=== PATIENT | male | born 1940 | race Caucasian/White ===

== ENCOUNTER 2017-08-29 14:02 | Inpatient (IN) | payer MEDICARE, MEDICAID ==
[~2017-08-29] VITALS: Ht 162.5 cm; Wt 74.2 kg
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
--- NOTE | ~2017-08-29 | PR ---
[place], [place] PROGRESS NOTE [id number] #: [id number] ROOM: 311 DOCTOR: Georgia BUENO,JOSELITO BIRTHDATE: [birth year] DOS: 09/02/2017 PSYCHIATRIC PROGRESS NOTE SUBJECTIVE: The patient seen and spoke with the staff. Per staff, the patient was pleasant and cooperative. His ammonia level was 98. We checked today ____. Hospitalist was on board and they were consulted. The plan is to give him lactulose and follow the ammonia level again. Per nursing staff, there are no behavioral problems or issues. The patient was pleasant and cooperative. He described his mood as okay. He was hard of hearing though. He reported good sleep and appetite and does not seem to be of in any kind of distress. Denied any other side effect from the medication also. MENTAL STATUS EXAMINATION: A pleasant and cooperative, described his mood as "okay." Affect, mood congruent. Thought process goal direct. No flight of ideas, loosening of association. He denied auditory or visual hallucination. No delusion or paranoia noted. He denied suicidal ideation, intent or plan. He also denied homicidal ideation, intent or plan. ASSESSMENT: 1. Major depressive disorder, recurrent with psychotic feature 2. Posttraumatic stress disorder. PLAN: 1. Continue current medication and care. 2. Continue redirection. 3. Need to pay attention to the ammonia level. 4. Medication management and discharge plan by the regular team. JOSELITO BUENO MD CM:ANAHI [id number] Georgia BUENO 09/02/17 1537 interface
--- NOTE | ~2017-08-29 | PR ---
[place], [place] PROGRESS NOTE NAME: NICANOR FISHMAN UNIT #: [id number] ROOM: 311 DOCTOR: PRICILLA ALBA MD BIRTHDATE: [birth year] DOS: 09/03/2017 CHIEF COMPLAINT: "Morning." SUMMARY OF THE VISIT: The patient was interviewed as he sat eating his breakfast. He still remains hard of hearing, so communication is limited. He was pleasant and bright upon approach though and voiced no complaints. Of note, over the weekend, his serum ammonia level was elevated. It is unclear whether or not this is a true elevated or if perhaps lab is not icing the specimen properly. MENTAL STATUS: He is alert and oriented to self and place, not necessarily time. Mood seems fairly euthymic. Affect appropriate. There is no patrick or hypomania. There are no sexually inappropriate behavior, delusional quality of his symptoms noted. Short term memory remains poor. PLAN: I will discontinue the Depakote in case this is causing any possible elevation in his ammonia level. I will keep him on the Invega 3 mg a day to break through the delusional system. I will increase his Exelon patch from 4.6 to 9.5 mg a day as well as maximizing the Namenda dose to 10 mg b.i.d. in order to help maintain or improve ADLs, behavior and cognition. We will engage in individual and hartley milieu activity with the ultimate plan to return to the least restrictive environment when psychiatrically stable. PRICILLA ALBA MD CM:PNTRANS [id number] PRICILLA ALBA MD 09/03/17 1044 interface
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
--- NOTE | ~2017-08-29 | PR ---
[place], [place] PROGRESS NOTE NAME: [id number] #: [id number] ROOM: 311 DOCTOR: Georgia BUENO,JOSELITO BIRTHDATE: [birth year] DOS: 09/01/2017 PSYCHIATRIC PROGRESS NOTE SUBJECTIVE: The patient seen and spoke with the staff. Per staff, the patient is doing well. No behavioral problems or issues. His ammonia level was 58, but no outward physical issues. The hospitalist was consulted. The patient was in the dining area. He reports doing well, did not express any problems or concern. He said that he slept well last night and his appetite is pretty good also. He denied any side effect from the medication. MENTAL STATUS EXAMINATION: The patient was pleasant, cooperative, described his mood as "okay." Affect, mood congruent. Thought process goal directed. No flight of ideas or loosening of association. He denied auditory or visual hallucination. No delusion or paranoia noted. He denied any suicidal ideation, intent or plan. He also denied any homicidal ideation, intent or plan. Insight and judgment fair. ASSESSMENT: 1. Major depressive disorder, recurrent with psychotic feature. 2. Posttraumatic stress disorder. PLAN: 1. Continue current medication and care. 2. Continue redirection. 3. Consult hospitalist for high ammonia level. 4. Supportive care and hartley milieu. JOSELITO BUENO MD CM:ANAHI [phone] Georgia BUENO 09/01/17 1650 interface
--- NOTE | 2017-08-29 06:15 | NUR ---
PT HAS SLEPT QUIETLY THROUGHOUT THE SHIFT PAST 0030.
[2017-08-29 20:30] VITALS: BP 137/63
[2017-08-29] MEDS ORDERED: CELEXA10 MG PO (21:14)
[2017-08-29] MEDS ORDERED: DONEPEZIL HCL10 MG PO (21:15)
[2017-08-29] MEDS ORDERED: NAMENDA-5 PO (21:16)
[2017-08-29] MEDS ORDERED: VITAMIN D31000 UNI1 PO (21:18)
[2017-08-29] MEDS ORDERED: LASIX40 MG PO (21:39)
[2017-08-29] MEDS ORDERED: FENOFIBRATE145 M1 PO (21:39)
[2017-08-29] MEDS ORDERED: PILOCARPINE HCL15 M2 OU (21:41)
[2017-08-29] MEDS ORDERED: ALDACTONE25 M1 PO (21:42)
[2017-08-29] MEDS ORDERED: TRAVATAN 0.0042.5 M1 OU (21:44)
[2017-08-29] MEDS ORDERED: ALPHAGAN P 10 M10 M1 OU (21:46)
[2017-08-29] MEDS ORDERED: LIPITOR10 MG PO (21:47)
[2017-08-29] MEDS ORDERED: ASPIRIN ADULT L81 M2 PO (21:49)
[2017-08-29] MEDS ORDERED: ACETAMINOPHEN325 M3 PO (21:53)
[2017-08-29] MEDS ORDERED: ACETAZOLAMIDE250 MG PO (21:54)
[2017-08-29] MEDS ORDERED: ARTIFICIAL TEAR1513 OU (21:59)
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
--- NOTE | 2017-08-29 22:00 | NUR ---
NICANOR FISHMAN a 77 year old M admitted A DIRECT ADMISSION FROM [facility] via wheel chair as a voluntary admission PER LEGAL GUARDIAN JORDY NARANJO. PT ARRIVED TO ED REGISTRATION VIA 1 STAFF TRANSPORT FROM THE ASSISTED. VERBAL CONSENT FOR VOLUNTARY ADMISSION WAS OBTAINED EARLIER BY LUKE CARREON RN & LILLIAN KAT RN. Arrived on unit at 2024. ALLERGIES: NKA. Vital signs are: 97.4-89-18 137/63. NO OTHER ADMISSION FORMS SIGNED AT THIS TIME. AWAITING RETURN PHONE CALL FROM LEGAL GUARDIAN. Admitted under the services of [facility]. A search was conducted and hazardous articles were removed. Client was oriented to the unit. TAE SIERRA
--- NOTE | 2017-08-29 22:13 | NUR ---
DR VALENTIN NOTIFIED OF MEDICAL CONSULT. STATED TO PUT CONSULT UNDER DR HOLLINS.
--- NOTE | 2017-08-29 22:47 | NUR ---
DR BROOKE ON UNIT TO SEE PT FOR MEDICAL CONSULT.
[2017-08-29 23:09] VITALS: BP 137/63
--- NOTE | 2017-08-29 23:41 | NUR ---
VOICE MESSAGE LEFT FOR JORDY NARANJO LEGAL GUARDIAN TO RETURN PHONE CALL TO UNIT FOR CONSENTS FOR MEDICATIONS & OTHER ADMISSION PAPERS.
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
[2017-08-30 07:30] LABS: BASO % 0.5 % (0.0-1.0); EOS # 0.2 10*3/uL (0.0-0.4); EOS % 3.1 % (1.0-4.0); HEMATOCRIT 40.2 % (42.0-52.0); LYMPH # 1.6 10*3/uL (1.3-4.4); MEAN CELL VOLUME 93.9 fl (80.0-94.0); MEAN CORPUSCULAR HGB 30.4 pg (27.0-31.0); MEAN CORPUSCULAR HGB CONC 32.3 g/dl (33.0-37.0); MEAN PLATELET VOLUME 9.1 fl (9.6-12.3); MONO # 0.7 10*3/uL (0.1-1.0); MONO % 12.9 % (3.0-9.0); NEUT # 3.2 10*3/uL (2.3-7.9); NEUT % 55.2 % (47.0-73.0); PLATELET COUNT AUTOMATED 269 10*3/uL (130-400); RED BLOOD COUNT 4.28 10*6/uL (4.50-5.90); WHITE BLOOD COUNT 5.7 10*3/uL (4.8-10.8)
[2017-08-30 07:46] LABS: ALBUMIN 3.3 gm/dl (3.1-4.5); ALKALINE PHOSPHATASE 57 U/L (45-117); BUN 16 mg/dl (7-24); CHLORIDE 106 mmol/L (98-107); CHOLESTEROL 132 mg/dL (<200); CREATININE 1.28 mg/dL (0.70-1.30); POTASSIUM 3.8 mmol/L (3.5-5.1); SGOT/AST 12 IU/L (3-35); SGPT/ALT 12 U/L (12-78); SODIUM 136 mmol/L (136-145); TOTAL PROTEIN 7.1 gm/dL (6.4-8.2); TRIGLYCERIDES 57 mg/dl (<150); VLDL CHOLESTEROL 11 mg/dL (6-40)
[2017-08-30 07:55] LABS: HDL CHOLESTEROL 59 mg/dl (40-60); LDL CHOLESTEROL 62 mg/dL (9-159); THYROID STIM HORMONE (HS) 0.771 uIU/ml (0.358-4.75)
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
[2017-08-30 08:17] VITALS: BP 121/65
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
[2017-08-30 08:39] LABS: VITAMIN D, 25-HYDROXY 25.1 ng/mL (30-100)
--- NOTE | 2017-08-30 11:10 | NUR ---
URINALYSIS OBTAINED AT THIS TIME VIA CLEAN CATCH AND SENT TO LAB.
[2017-08-30 11:21] LABS: BILIRUBIN NEGATIVE (NEGATIVE); BLOOD NEGATIVE (NEGATIVE); CLARITY CLEAR (CLEAR); COLOR YELLOW (YELLOW); GLUCOSE NEGATIVE (NEGATIVE); KETONE NEGATIVE (NEGATIVE); LEUKO ESTERASE NEGATIVE (NEGATIVE); NITRITE NEGATIVE (NEGATIVE); SPECIFIC GRAVITY <= 1.005 (1.005-1.030); UROBILINOGEN 0.2 E.U./dl (0.2-1.0)
--- NOTE | 2017-08-30 11:34 | NUR ---
PT IS ALERT AND ORIENTED TO PERSON, UNABLE TO ACCURATELY ASSESS FURTHER ORIENTATION OR MEMORY DUE TO PT BEING EXTREMELY HARD OF HEARING. UPON ASSESSMENT, PT'S EAR CANAL APPEARS FULL OF WAX AND HEARING AIDES FILLED WITH WAX, CLEANED ABLE, WILL ALERT HOSPITALISTS DURING ROUNDS. MOOD IS STABLE, EUTHYMIC, AFFECT IS BROAD RANGE AND APPROPRIATE. SPEECH IS WNL AND COHERENT, ABLE TO VERBALIZE NEEDS TO STAFF WITHOUT DIFFICULTY. NO VOCIED SI/HI. NO OVERT S/S HALLUCINATIONS NOTED. PT DOES CONTINUE TO VOICE PARANOID, ACCUSATORY AND GRANDIOSE DELUSIONS, SPEAKING ABOUT GETTING TO THE NURSE AT HIS [facility] AND STATES "THAT SON OF A B-TCGarret, I HAD 4 CHECKS COMING TO ME OVER $100,OOO, HE TOOK TWO AND HIS TOOK ONE AND HIS GIRLFRIEND TOOK ONE, I DIDN'T GET ANY OF THAT MONEY I SHOULD HAVE HAD!". REORIENTATION PROVIDED. PT UTILIZES WHEELCHAIR ON THE UNIT FOR MOBILITY, PROSTHETIC LEG IN PLACE TO LEFT LEG. PT ABLE TO APPLY PROTHESIS INDEPENDENTLY. PT ABLE TO TRANSFER WITH MINIMAL ASSIST OF 1 STAFF MEMBER. CONTINENT OF BOWEL AND BLADDER. DISPLAYS GOOD APPETITE WITH ADEQUATE FLUID INTAKE, NO DISTRESS NOTED. Q15 MIN SAFETY CHECKS MAINTAINED, FALL RISK PRECAUTIONS MAINTAINED. REFER TO [facility] FLOWSHEET FOR SPECIFIC MONITORING.
[2017-08-30 11:39] LABS: WBC 0-2 wbc/hpf (0-5)
--- NOTE | 2017-08-30 11:42 | NUR ---
Morning exercises/ "strawberry" cornhole and remenissing group Patient attended and particpated in half of group today. Patient limited in partipation due to increased [place]. Patient able to follow visual cues for exercises and participation in cornhole with appropriate behaviours with peers and staff. Patient reports enjoying activities.
--- NOTE | 2017-08-30 11:57 | NUR ---
PHYSICAL THERAPY PAtient evaluated on 3, full evaluation to follow. Continue with PT as per plan of care with fall, right AKA and acute debility precautions. PAtient with poor hearing and vision. Return to jail at terminal supervisor care as prior with PT prn to return to PLOF. PAtient is high complexity via chart review, tests and evaluation: 33303. Thank you for this referral. Vianca Garrett,PT
--- NOTE | 2017-08-30 12:05 | NUR ---
Occupational Therapy evaluation completed this date on 3 with full eval to follow. PRecautions include fall risk, new RLE prosthesis d/t r AKA,moderate complexity level 27655, severe SIOUX, impaired vision d/t glaucoma. Recommend OT per pOC and return to [facility] at w/c upon d/c. Thank you for this referral. Birdie Sandoval OTR/l
--- NOTE | 2017-08-30 14:03 | NUR ---
DR. MARRERO HERE TO SEE PT AT THIS TIME, UPDATE GIVEN, DR. WILKERSON REVIEWING LABS, STATES OK FOR NURSING TO FLUSH EARS DUE TO WAX BUILD-UP.
--- NOTE | 2017-08-30 14:55 | NUR ---
CALL PLACED TO ED TO REQUEST EAR IRRIGATION PER DR MARRERO, NO ONE AVAILABLE AT THIS TIME, WILL ATTEMPT LATER.
--- NOTE | 2017-08-30 15:00 | NUR ---
Inspirational craft group Patient attended and participated appropriately however with limitations. Patient with TAZLINA and unable to read. Patient stated " I didnt finish school because I couldnt read." Nursing aware and addressing issues with TAZLINA. Patient pleasant and smiling throughout group.
--- NOTE | 2017-08-30 18:26 | NUR ---
SHIFT CHART CHECK COMPLETED.
[2017-08-30 19:40] VITALS: BP 125/72
--- NOTE | 2017-08-30 21:22 | NUR ---
BILATERAL EARS IRRIGATED PER ORDER USING EAR SYRINGE AND TEPID WATER PER POLICY. COPIOUS AMOUNTS OF WHITE AND YELLOW CERUMEN EXPRESSED. PT TOLERATED PROCEDURE WELL.
--- NOTE | 2017-08-31 04:38 | NUR ---
24 HOUR CHART CHECK COMPLETED.
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
--- NOTE | 2017-08-31 08:33 | NUR ---
DR. ALBA MADE AWARE OF ABNORMAL AMMONIA LEVEL OF 38, STATES TO REPEAT AMMONIA LEVEL TOMORROW MORNING.
[2017-08-31 09:45] VITALS: BP 115/63
--- NOTE | 2017-08-31 11:56 | NUR ---
Patient seen for Occupational Therapy evaluation this date for UE strengthening via w/c push ups, functional transfers w/ ww.Patient's hearing aides are not working d/ severe wax build up in tubing of hearing aides. They will need to be cleaned by a specialist. He has a great deal of difficulty following instructions that cannot be demonstrated. He demonstrates min assist for sit to stand, mod assist for xfers bed to and from w/c and stand tolerance w/ ww x 2-3 minutes. He performs w/c mobility at TX level. After OT tx, patient verbalized an invite that OT could come back to visit day or NIGHT. He then verbalized that he has not "had any" in 3 yrs and he "keeps asking, but they always refuse". Nursing informed of these comments. Pt was however pleasant and laughed saying "I understand" when OT said "No, you'll live"in response to his offer. OT continue per POC. Birdie Sandoval OTR/L
--- NOTE | 2017-08-31 12:33 | NUR ---
OCCUPATIONAL THERAPIST REPORTED PT MADE VERBAL SEXUALLY INAPPROPRIATE ADVANCES TO HER DURING THERAPY, STATES HE WAS EASILY REDIRECTED AND PLEASANT, DID NOT ATTEMPT TO TOUCH THERAPIST, SEE OT NOTE FOR FURTHER DETAIL.
--- NOTE | 2017-08-31 13:16 | NUR ---
Exercise/Game Patient did not attend group this morning. Patient was asleep in his room. When AC attempted to wake up patient, patient could not be awaken.
--- NOTE | 2017-08-31 14:28 | NUR ---
PT IS ALERT AND ORIENTED TO PERSON, PLACE, APPROX TIME. ST/LT MEMORY DEFICITS NOTED. RESPIRATIONS EASY ON ROOM AIR. PT VERY ENTERPRISE DESPITE EAR IRRIGATION AND HEARING AIDE BATTERIES BEING REPLACED. DEBROX GTTS ORDERED BY DR. ALBA. GIVEN ORDERED. MOOD IS STABLE, AFFECT IS APPROPRIATE. SPEECH IS LOUD BUT COHERENT, ABLE TO MAKE NEEDS KNOWN WITHOUT DIFFICULTY. PT DENIES SI/HI. PT DENIES HALLUCINATIONS, NO RESPONSE TO INTERNAL STIMULI NOTED. PT HAS NOT VOICED ANY PARANOID DELUSIONS THIS SHIFT. PT IS CALM AND COOPERATIVE, INTERACTIVE WITH STAFF AND PEERS, PARTICIPATES IN GROUPS AND ACTIVITIES TO THE BEST OF HIS ABILITY D/T HEARING DIFFICULTIES. STAFF HAS ATTEMPTED TO COMMUNICATE WITH PT VIA WRITTEN WORDS, PT STATES "I CAN'T READ. I TRIED A FEW TIMES BACK IN SCHOOL, BUT I NEVER GOT THE HANG OF IT." PICTURE COMMUNICATION BOARD ON UNIT AVAILABLE FOR STAFF UTILIZATION TO FACILITATE COMMUNICATION. PT UTILIZES WHEELCHAIR FOR MOBILITY, ABLE TO TRANSFER SELF WITH STANDBY ASSIST FROM STAFF FOR SAFETY. FALL RISK PRECAUTIONS MAINTAINED D/T PROSTHETIC RIGHT LEG. PT IS CONTINENT OF BOWEL AND BLADDER, DISPLAYS GOOD APPETITE WITH ADEQUATE FLUID INTAKE. MEDICATION COMPLIANT WITHOUT DIFFICULTY. PT'S TREATMENT PLAN TARGETS DELUSIONAL THOUGHT PROCESSES: STAFF WILL CONTINUE TO ENGAGE PT IN REALITY BASED INTERACTIONS, ASSIST PT WITH DIFFERENTIATING BETWEEN DELUSIONS AND REALITY BASED THOUGHTS, ENCOURAGE PT TO PARTICIPATE IN GROUPS AND ACTIVITIES AND ENCOURAGE MEDICATION COMPLIANCE. PLAN TO CONTINUE CURRENT TX PLAN. NO DISTRESS NOTED. Q15 MIN SAFETY CHECKS MAINTAINED, REFER TO [facility] FLOWSHEET FOR SPECIFIC MONITORING.
--- NOTE | 2017-08-31 15:25 | NUR ---
Witch Fishing/Reminiscing Patient was in attendence. Due to patients inability to hear or read it was difficult for patient to reminisce. Patient did participate in the Witch Fishing portion of group but did not understand reminiscing.
--- NOTE | 2017-08-31 16:21 | NUR ---
TRETAMENT TEAM WAS HELD WITH THE FOLLOWING: DR. ALBA, RESIDENT, RNs, ATs, SW. PENDING DISCHARGE FOR NEXT WEEK. LOTS OF EAR WAX. HEARING AIDS ARE CKED WITH WAX AND ARE NOT WORKING.
--- NOTE | 2017-08-31 18:13 | NUR ---
SHIFT CHART CHECK COMPLETED.
[2017-08-31 19:45] VITALS: BP 104/60
--- NOTE | 2017-09-01 03:00 | NUR ---
PT ORIENTED TO NAME ONLY. PLEASANT AND MEDICATION COMPLIANT. PT HAS EXHIBITED NO SEXUALLY INAPPROPRIATE BEHAVIOR AT THIS TIME OF DOCUMENTATION. NURSE ENCOURAGED PT TO VERBALIZE EMOTIONS IN HOPES TO FOSTER THERAPEUTIC RAPPORT. PT REPORTED NO ISSUES TO THIS NURSE. REASSURED PT THAT HE WAS IN A SAFE ENVIRONMENT AND PROVIDED REORIENTATION, WHEN NECESSARY. CONTINUE TO MONITOR FOR CHANGES IN BEHAVIOR. REFER TO FLOWSHEET FOR ADDITIONAL INFO.
--- NOTE | 2017-09-01 03:08 | NUR ---
24HR CHART CHECK COMPLETE
--- NOTE | 2017-09-01 07:05 | NUR ---
PT SLEPT >8HRS, WITH NO INTERRUPTIONS
[2017-09-01 08:00] VITALS: BP 128/68
--- NOTE | 2017-09-01 08:00 | NUR ---
LAB CALLED WITH CRITICAL LAB- AMMONIA AT 58; DR. BUENO AND DR. CLARK NOTIFIED OF LAB LEVEL.
--- NOTE | 2017-09-01 11:08 | NUR ---
DR. CONNORS ON UNIT TO SEE PATIENT.
--- NOTE | 2017-09-01 17:22 | NUR ---
PATIENT IS ALERT AND ORIENTED TO PERSON AND TIME, ABLE TO VOICE NEEDS. MEMORY DEFICITS NOTED. MOOD IS STABLE, COMPLIANT WITH MEDICATION WITH MED EDUCATIONS PRIOR TO ADMINSTRIING MEDICATION. PATIENT DENIES ANY HALLUCINAITONS, DELUSIONS, HI/SI OR PAIN. PATIENT IS HARD OF HEARING. PATIENT REQUIRES 1 PERSON ASSIST WITH ACTIVITIES OF DAILY LIVING. MEAL INTAKES ARE GOOD WITH ADEQUATE FLUIDS. Q 15 MINUTE SAFETY CHECKS MAINATINED. NO SEXUALLY INAPPROPRIATE OUTBURST OR BEHAVIORS NOTED. CONTINUE TO MONITOR AND REDIRECT NEEDED.
--- NOTE | 2017-09-01 17:34 | NUR ---
24 HR chart check completed.
[2017-09-01 19:47] VITALS: BP 135/71
--- NOTE | 2017-09-01 22:35 | NUR ---
24HR CHART CHECKS COMPLETE
--- NOTE | 2017-09-01 23:53 | NUR ---
PT PLEASANT WITH APPROPRIATE AFFECT. PT ORIENTED TO NAME ONLY. SOCIALIZED WELL WITH PEERS. MEDICATION COMPLIANT. NURSE ENCOURAGED VERBALIZATION OF FEELINGS REGARDING ADMISSION. PT STATES "I'M DOING FINE." FREQUENTLY SMILING. NO SEXUALLY INAPPROPRIATE BEHAVIORS NOTED. CONTINUE TO OBSERVE FOR CHANGES IN BEHAVIORS. REFER TO FLOWSHEET FOR ADDITIONAL INFO.
--- NOTE | 2017-09-02 06:19 | NUR ---
PT SLEPT >8HRS WITH NO INTERRUPTIONS.
--- NOTE | 2017-09-02 07:45 | NUR ---
NOTIFIED OF CRITICAL AMMONIA LEVEL OF 97. STATES WILL ENTER NEW ORDERS.
[2017-09-02 07:52] VITALS: BP 128/64
--- NOTE | 2017-09-02 09:08 | NUR ---
DR. BUENO HERE TO SEE PT AT THIS TIME, UPDATE GIVEN, MADE AWARE OF CRITICAL HIGH AMMONIA AND NEW ORDERS RECIEVED FROM HOSPITALISTS.
--- NOTE | 2017-09-02 10:53 | NUR ---
DR. CONNORS ON UNIT TO SEE PT AT THIS TIME, MADE AWARE ULTRASOUND CAN NOT BE COMPLETED UNTIL TOMORROW PER RADIOLOGY.
--- NOTE | 2017-09-02 11:46 | NUR ---
PT IS ALERT AND ORIENTED TO PERSON, APPROX PLACE AND TIME. ST/LT MEMORY DEFICITS NOTED. RESPIRATIONS EASY ON ROOM AIR. MOOD IS STABLE, AFFECT IS BROAD RANGE AND APPROPRIATE. SPEECH IS LOUD BUT COHERENT, ABLE TO MAKE NEEDS KNOWN WITHOUT DIFFICULTY. PT VERY HO-CHUNK. PT DENIES SI/HI. PT DENIES HALLUCINATIONS, NO RESPONSE TO INTERNAL STIMULI NOTED. NO PARANOIA/DELUSIONS VOICED THIS SHIFT. PT IS CALM AND COOPERATIVE, INTERACTIVE WITH STAFF AND PEERS. PT UTILIZES WHEELCHAIR ON UNIT FOR MOBILITY, ABLE TO TRANSFER SELF WITH STANDBY ASSIST OF STAFF FOR SAFETY. FALL RISK PRECAUTIONS MAINTAINED D/T PROSTHETIC RIGHT LEG. PT IS CONTINENT OF BOWEL AND BLADDER, BOWEL PATTERN REGULAR, DISPLAYS GOOD APPETITE WITH ADEQUATE FLUID INTAKE. MEDICATION COMPLIANT WITHOUT DIFFICULTY. PT GIVEN LACTULOSE 30GM Q2H ORDERED BY HOSPITALISTS FOR CRITICAL HIGH AMMONIA LEVEL. PT COMPLIANT WITH THIS REGIME. PT'S TREATMENT PLAN TARGETS DELUSIONAL THOUGHT PROCESSES: STAFF WILL CONTINUE TO ENGAGE PT IN REAILTY BASED THOUGHTS, ENCOURAGE PT TO PARTICIPATE IN GROUPS AND ACTIVITIES AND ENCOURAGE MEDICATION COMPLIANCE. PLAN TO CONTINUE CURRENT TX PLAN. NO DISTRESS NOTED. Q15 MIN SAFETY CHECKS MAINTAINED, REFER TO [facility] FLOWSHEET FOR SPECIFIC MONITORING.
--- NOTE | 2017-09-02 14:59 | NUR ---
SPOKE TO DR. SINGLETARY, MADE AWARE PT COUGHING WITH THIN LIQUIDS, SPEECH CONSULT ORDERED FOR TOMORROW, DR. SINGLETARY STATES TO CHANGE DIET TO SOFT DIET WITH NECTAR THICK LIQUIDS UNTIL EVALUATED BY SPEECH.
--- NOTE | 2017-09-02 15:32 | NUR ---
SPOKE TO SISTER/POA JORDY NARANJO, UPDATE GIVEN.
--- NOTE | 2017-09-02 16:55 | NUR ---
DR. SINGLETARY NOTIFIED OF REPEAT AMMONIA LEVEL DONE WITH RESULT OF 34.
--- NOTE | 2017-09-02 17:19 | NUR ---
SHIFT CHART CHECK COMPLETED.
--- NOTE | 2017-09-02 19:57 | NUR ---
THIS NURSE CALLED TO PATIENT'S ROOM BY NURSING STAFF. PATIENT COOL, CLAMMY. PATIENT HEART RATE OF 118. PATIENT DIFFICULT TO TRANSFER OFF TOILET TO WHEELCHAIR THEN TO BED WITH ASSIST X 2. BLOOD SUGAR CHECKED WITH RESULT OF 188. PATIENT [place] BUT ABLE TO RESPONDD APPROPRIATELY TO STAFF DIRECTIONS. 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 DR. AMAYA CALLED AND UPDATED WITH PATIENT CONDITION. RECENT LABS AND MEDICATION ORDERS REVIEWED WITH DR. AMAYA. DR. AMAYA WITH NEW ORDER TO CHANGE LACTULOSE 30GM TO TID AND DISCONTINUE LACULOSE 30GM QID, CMP IN AM, AND PROVIDE PATIENT WITH FLUIDS. DR. AMAYA ALSO AWARE OF AMMONIAL LEVEL TO BE DRAWN IN AM
[2017-09-02 20:10] VITALS: BP 155/84
--- NOTE | 2017-09-02 22:10 | NUR ---
PATIENT WITH NO DELUSIONS THIS SHIFT. CALM AND PURPOSEFUL. COOPERATIVE WITH STAFF. NO HALLUCINATIONS OR DELUSIONS.
--- NOTE | 2017-09-03 06:40 | NUR ---
Q 15 MINUTE SAFETY CHECKS MAINTAINED. SLEPT > 7 HOURS THROUGHOUT SHIFT
--- NOTE | 2017-09-03 06:45 | NUR ---
24 HR chart check completed.
[2017-09-03 07:11] LABS: ALBUMIN 3.4 gm/dl (3.1-4.5); CREATININE 1.51 mg/dL (0.70-1.30); POTASSIUM 3.2 mmol/L (3.5-5.1); TOTAL PROTEIN 7.5 gm/dL (6.4-8.2)
[2017-09-03 08:08] VITALS: BP 123/62
--- NOTE | 2017-09-03 08:42 | NUR ---
TREATMENT TEAM WAS HELD WITHT HE FOLLOWING PRESENT: DR. ALBA, RNs, COMPUTERIZED MILL MILL RECORDER, ATs, SWs. DR. ALBA STATED PENDING DISCHARGE FOR SUNDAY OR SUNDAY. AMMONIA LEVEL IS NOT RIGHT. RETURNING TO [facility] NO PRE-CERT NEEDED.
--- NOTE | 2017-09-03 09:13 | NUR ---
PHYSICAL THERAPY Mr Mansfield seen this AM 1:1 for his therapy session and going off the floor for his US treatment. Stopped back 1 1/2 hour later and Pt was having his speech treatment. STAN HODGES LEATHER POLISHER.
--- NOTE | 2017-09-03 10:09 | NUR ---
PHYSICAL THERAPY Back to see Rafal again and he was supine in bed sleeping sound and did not arouse. STAN HODGES PUBLISHING SYSTEMS ANALYST.
--- NOTE | 2017-09-03 11:02 | NUR ---
DR CONNORS ON UNIT TO SEE PATIENT AND UPDATED ON LABS.
--- NOTE | 2017-09-03 11:23 | NUR ---
Music Therapy/Reminisce/Trivia Patient did not attend group this morning. Patient refused when encourage to join group. Patient stated he wanted to lay down
--- NOTE | 2017-09-03 13:15 | NUR ---
SPEECH PATHOLOGY Bedside swallow eval. completed as per orders. Patient was alert and cooperative and severely KIVAL[place]. Patient was assessed with puree, soft solid and nectar liquids. He is currently ordered a soft diet and nectar thick liquids. Patient displayed no overt difficulty with puree. With nectar liquid, he occasionally displayed a delayed swallow but no cough or wet vocal quality were observed. He displayed very lengthy mastication with soft solid and eventually fatigued and filled up. He took greater than 15 minutes to consume two bites of a grilled cheese sandwich and after that, stated he had enough. Recommend pureed food and nectar thick liquid. Patient is able to feed himself and has been noted to use safe swallow strategies during self feeding. Results and glenny. were shared with his nurse who verbalized understanding. Follow up therapy is not warranted at this time. Refer to report in [place] for further information. Thank you for this referral. DENIA GARSIA MSCCC-PLASTIC JIG AND FIXTURE BUILDER
--- NOTE | 2017-09-03 15:11 | NUR ---
PATIENT IS ALERT AND ORIENT TO PERSON, PLACE WITH CONFUSION. VERY HARD OF HEARING. RESPIRATIONS ARE EASY, NON-LABORED ON ROOM AIR. MOOD IS STABLE. NO HALLUCINATIONS, DELUSIONS, HI/SI OR PAIN NOTED. PATIENT HAS BEEN CALM AND COOPERATIVE WITH NURSING STAFF. RESTING QUIETLY, NO SIGNS OR SYMPTOMS OF DISTRESS. MEAL INTAKES VARIES WITH ADEQUATE FLUIDS. CONTINENT OF BOWEL AND BLADDER. 1-2 PERSON ASSIST ACTIVITIES OF DAILY LIVING. MEDICATION COMPLIANT WITH EDUCATION. Q 15 MINUTE SAFETY CHECKS MAINTAINED. NO SEXUAL INAPPROPRIATE COMMENTS OR GESTURES NOTED. CONTINUE TO MONITOR AND REDIRECT NEEDED.
--- NOTE | 2017-09-03 15:23 | NUR ---
Craft and self-esteem Patient did not attend group this afternoon per nursing patient not feeling well and sleeping.
--- NOTE | 2017-09-03 16:19 | NUR ---
24 HR chart check completed.
[2017-09-03 20:00] VITALS: BP 135/66
--- NOTE | 2017-09-03 22:44 | NUR ---
COMPLIANT TAKING HS MEDICATIONS CRUSHED & MIXED IN PUDDING.
--- NOTE | 2017-09-03 22:47 | NUR ---
24 HR chart check completed.
--- NOTE | 2017-09-04 05:48 | NUR ---
PT HAS BEEN OBSERVED ON Q 15 MIN CHECKS & HAS SLEPT QUIETLY THROUGHOUT THE SHIFT PAST 2200 WITH 1 BRIEF AWAKENING TO GO TO THE BATHROOM WITH STAFF ASSISTANCE. CONTINENT OF BOWEL & BLADDER.
[2017-09-04 08:13] VITALS: BP 141/71
--- NOTE | 2017-09-04 08:41 | NUR ---
PHYSICAL THERAPY Rafal seen this AM 1:1 for his therapy session. Pt supine sleeping sound did not arouse. When i came back Pt up having his breakfast. STAN HODGES SOAP BOILER.
--- NOTE | 2017-09-04 10:50 | NUR ---
DR. CONNORS ON UNIT TO SEE PATIENT.
--- NOTE | 2017-09-04 11:31 | NUR ---
Host Committee Patient was in attendence for group this morning as well as partipated. Patient unable to read as well as very hard of hearing. Patient did not have hearing aids in this morning due to cleaning. With the help of Tammie quintero, who was 1:1 with him patient was somewhat able to participate. Patient was laughing smiling and talking,he seemed to be enjoying himself
--- NOTE | 2017-09-04 11:44 | NUR ---
PATIENT IS ALERT AND ORIENT TO PERSON, PLACE AND SITUATION, ABLE TO VOICE NEEDS. HAS SLIGHT CONFUSION AT TIMES DUE TO BEING HARD OF HEARING. MOOD IS STABLE, PLEASANT DEMEANOR. DENIES ANY HALLUCINATION, DELUSIONS, HI/SI OR PAIN. 1 PERSON ASSIST WITH ACTIVITIES OF DAILY LIVING, SET UP FOR MEALS. INDEPENDANT WITH MEALS, MEALS ARE FAIR WITH ADEQUATE FLUIDS. CONTINENT OF BOWEL AND BLADDER. COMPLIANT WITH MEDICATION WITH EDUCATION. Q 15 MINUTE SAFETY CHECKS MAINTAINED. NO INAPPROPRIATE BEHAVOIRS NOTED, CONTINUE TO MONITOR AND REDIRECT NEEDED.
--- NOTE | 2017-09-04 13:14 | NUR ---
PATIENT SEEN OT 30 MINUTES THIS DATE. PATIENT IDENTIFIED BY NAME AND DATE . PATIENT VERY HARD OF HEARING WITH VISUAL AND TACTILE CUES REQUIRED. COMPLETED BUE AROM STRENGTHENING ALL PLANES X 15 REPS WITH VISUAL CUES REQUIRED. PATIENT COMPLETED UB DRESSING DOFFING SHIRT SBA AND MIN A NOÉ NEW PULLOVER SHIRT. PATIENT DONNED FLANNEL BUTTON UP SHIRT MAX A SECONDARY DECREASE FMC. PATIENT REQUIRED INCREASE TIME TO COMPLETE. PATIENT COMPLETED STS FROM W/C IN HALLWAY USE RAIL MODA X 2 WITH TACTILE/VISUAL CUES REQUIRED TECHNIQUE AND FORM. PATIENT DEMOSNTRATED P/P+ STAND BALANCE APPROX 30 SECONDS TO 1 MINUTES X 2 MIN A/MOD A MAINTAIN BALANCE. PATIENT ALARM IN PLACE AND PATIENT SEATED IN GROUP ROOM UPON EXITING THIS DATE. SHEILA DEUTSCH/Bob
--- NOTE | 2017-09-04 13:44 | NUR ---
PHYSICAL THERAPY Back this PM to see Ranjeet Lyles was supine in bed. Transfer supine/sit MOD A X 1, sitting balance once up CGA X 1, and putting his right prosthesis on. Followed by sit/stand and standing balance MOD A X 1, X 2. Then gait 26' into pt's bathroom with wheeled walker and MOD A X 1, Pt having large BM and his aid in at this time to clean Mr Mansfield up and transfer into his wheelchair STAN STEWART PORTER HEAD.
--- NOTE | 2017-09-04 15:22 | NUR ---
[place] Patient did attend group as well as participated. Patient has a very hard time hearing and with 1:1 With a milieu,Tammie, patient was able to play Star.me and was having a good time laughing with others regardless of his hearing difficulties. Patient was appropriate throughout group with no delusional issues
--- NOTE | 2017-09-04 16:16 | NUR ---
Shift chart check completed.
--- NOTE | 2017-09-04 17:46 | NUR ---
MARISOL SPOKE WITH ADMISSIONS - [facility]/JHONNY GONZALEZ. MARISOL INFORMED JASON THAT LOOKING AT DISCHARGING ON SUNDAY AND MARISOL WILL SEND UPDATED INFORMATION. [phone] FAX #
--- NOTE | 2017-09-04 17:47 | NUR ---
SW SPOKE WITH [facility] [employer] AND ARRANGED TRANSPORTATION FOR DISHCARGE FOR 10-18 AT 2-3PM.
[2017-09-04 20:08] VITALS: BP 126/60
--- NOTE | 2017-09-04 21:27 | NUR ---
24 HR chart check completed.
--- NOTE | 2017-09-05 06:08 | NUR ---
PT HAS BEEN OBSERVED ON Q 15 MIN CHECKS & HAS SLEPT QUIETLY THROUGHOUT THE SHIFT PAST 2200.
[2017-09-05 07:59] VITALS: BP 121/84
--- NOTE | 2017-09-05 08:02 | NUR ---
PHYSICAL THERAPY Pt seen this AM and was sleeping sound, did not arouse. STAN HODGES STORE STOCKER.
--- NOTE | 2017-09-05 08:12 | NUR ---
TREATMENT TEAM WAS HELD WITHT HE FOLLOWING: DR. ALBA, RESIDENT, ANY COMMODITY SALES DELIVERER, SW, RN. DISCHAARGE TODAY BACK TO [facility]. SLEEPING ALOT . NO PRNS GIVEN.
[2017-09-05] MEDS ORDERED: PALIPERIDONE ER3 MG PO (09:17)
[2017-09-05] MEDS ORDERED: EXELON13.3 MG/21 T (09:17)
[2017-09-05] MEDS ORDERED: MEMANTINE HCL10 MG PO (09:17)
--- NOTE | 2017-09-05 10:39 | NUR ---
MARISOL spoke with Izzy - ophelia and gave time of berry picker machine operator 2-3 pm by [employer]. MARISOL faxed updated information.
--- NOTE | 2017-09-05 10:47 | NUR ---
AMADOR from [facility] Isha VÁZQUEZ inquiring about Pt. MARISOL faxed updated information to Izzy - [facility]. Pt to be discharged between 2 - 3pm today. Isha received information.
--- NOTE | 2017-09-05 11:32 | NUR ---
[place]:Avinash Malcolm/Reminiscing Patient was in attendence for group and with the assistance of a ingrid,Tammie,Patient was able to participate fully. Patient has difficulty hearing and can not read. Patients hearing aids are being cleaned. Patient was appropriate throughout group.
--- NOTE | 2017-09-05 11:50 | NUR ---
PHYSICAL THERAPY CO-SIGN I approve of the Phyical Therapy notes written above. HAYLIE NULL PT
--- NOTE | 2017-09-05 11:58 | NUR ---
PHYSICAL THERAPY Pnt was seen for 15' of 1:1 PT this date. Gait with w/w and min assist x 1 with w/c follow 100' with [place]. Pnt able to manage device on own on straight pathways and during turns. Transfers sit to/from stand with min assist x 1. Ther ex trunk, L LE, and R hip x 10 reps each incl: chair sit ups, marches, LAQ's, pillow squeezes, and hip abd with instruction in technique and pacing. Pnt has difficulty following verbal instruction, but is able to follow fairly well via demonstration. To cont. Kenia Gorman, PT
--- NOTE | 2017-09-05 12:57 | NUR ---
24 HR chart check completed.
--- NOTE | 2017-09-05 18:09 | NUR ---
PT DISCHARGED TO [facility] VIA [facility].
--- NOTE | 2017-09-05 18:27 | NUR ---
SW FAXED DISCHARGE INSTRUCTIONS DUE TO AMBULANCE BEING LATE AND MAY NOT COME TO 8PM. SW NOTIFIED FACILITY.
--- NOTE | 2017-09-05 18:28 | NUR ---
ABRAHAM SHOWED UP TO TRANSPORT PT. MARISOL CALLED TO LET FACILITY KNOW THAT PT WAS ON HIS WAY.
--- NOTE | 2017-09-05 18:29 | NUR ---
PT DISCHARGED BACK TO [facility]. PT WAS GLAD TO BE RETURNING TO FACILITY. DISCHARGE INFORAMTION WAS SENT TO FACILITY.
--- NOTE | 2017-09-05 18:30 | NUR ---
VM LEFT FOR SISTER JORDY GRIMES THAT PT WAS DISCHARGE BACK TO [facility]. SW ALSO ADVISED TO MAKE SURE FACILITY CLEANED AND RAPIRS HEARING AIDS.
--- NOTE | 2017-09-06 09:55 | NUR ---
Director Of Employer Services Note: mailed packet to Legal Guardian, Denita Miller, for signatures today.
--- NOTE | 2017-09-10 08:23 | NUR ---
OCCUPATIONAL THERAPY CO-SIGN I approve of the Occupational Therapy notes written above. CASSI GARRISON OTR/Bob
== END 2017-09-05 18:10 | disposition home or self-care (01) | DRG 885 ==
LOC: 3N 14:02
PROVIDERS: Hospitalist; Internal Medicine; ADMIT Psychiatry & Neurology Psychiatry
DX: F33.3 Major depressive disorder, recurrent, severe with psychotic symptoms (principal); G30.9 Alzheimer's disease, unspecified; F02.81 Dementia in other diseases classified elsewhere, unspecified severity, with behavioral disturbance; Z89.611 Acquired absence of right leg above knee; I12.9 Hypertensive chronic kidney disease with stage 1 through stage 4 chronic kidney disease, or unspecified chronic kidney disease; H40.9 Unspecified glaucoma; E78.5 Hyperlipidemia, unspecified; N18.2 Chronic kidney disease, stage 2 (mild); K21.9 Gastro-esophageal reflux disease without esophagitis; F43.10 Post-traumatic stress disorder, unspecified; F41.1 Generalized anxiety disorder; H04.123 Dry eye syndrome of bilateral lacrimal glands; E55.9 Vitamin D deficiency, unspecified; H61.23 Impacted cerumen, bilateral; Z79.899 Other long term (current) drug therapy